=== PATIENT | female | born 1950 | race Caucasian/White ===

== ENCOUNTER → 2016-07-31 | Outpatient (CLI) | payer OTHER | LOC: US 13:36 | DX: R59.1 Generalized enlarged lymph nodes (principal); R93.8 Abnormal findings on diagnostic imaging of other specified body structures | CPT/HCPCS: 76881 ==

== ENCOUNTER → 2017-01-19 | Outpatient (CLI) | payer MEDICARE | LOC: KOH-I 13:15 | DX: M25.552 Pain in left hip (principal); M16.0 Bilateral primary osteoarthritis of hip; R93.7 Abnormal findings on diagnostic imaging of other parts of musculoskeletal system | CPT/HCPCS: 73721 ==

== ENCOUNTER → 2020-07-02 | Outpatient (CLI) | payer MEDICARE ==
[~2020-07-02] VITALS: Ht 175.3 cm; Wt 83.0 kg
[~2020-07-02] MED LIST: ASPIR 8181 MG PO; ASPIRIN325 MG PO; CALCIUM PO; CINNAMON500 MG PO; COQ10 PO; ELIQUIS2.5 MG PO; IBU600 MG PO; IBUPROFEN600 MG PO; L-LYSINE500 MG PO; LEXAPRO TAB 1010 MG PO; LIPITOR10 MG PO; MACUVITE WITH1 EACH PO; MAG PO; METAMUCIL FIBE3.4 GM PO; NEURONTIN300 MG PO; NIACIN1000 MG PO; NORCO 10-325 T1 EACH PO; OMEGA 3 FISH O1 EACH PO; OMEPRAZOLE40 MG PO; PROAIR INH; PROLIA INJ60 MG/1 ML INJ; RANITIDINE HCL150 MG PO; SINGULAIR10 MG PO; TURMERIC PO; TYLENOL EXTRA500 MG PO; VITAMIN D2000 UNI1 PO; VOLTAREN EC 7575 MG PO; ZANAFLEX4 M1 PO; ZOFRAN 4 MG TAB4 MG PO
== END ==
LOC: OPSV 10:00
DX: S22.000A Wedge compression fracture of unspecified thoracic vertebra, initial encounter for closed fracture (principal); S32.000A Wedge compression fracture of unspecified lumbar vertebra, initial encounter for closed fracture; M81.0 Age-related osteoporosis without current pathological fracture
CPT/HCPCS: 96372

== ENCOUNTER → 2021-01-04 | Outpatient (CLI) | payer MEDICARE ==
[~2021-01-04] VITALS: Ht 175.3 cm; Wt 83.9 kg
== END ==
LOC: OPSV 08:23
DX: M80.08XA Age-related osteoporosis with current pathological fracture, vertebra(e), initial encounter for fracture (principal)
CPT/HCPCS: 96372

== ENCOUNTER → 2021-03-10 | Outpatient (CLI) | payer MEDICARE | LOC: RAD 14:34 | DX: S99.922S Unspecified injury of left foot, sequela (principal) | CPT/HCPCS: 73630 ==

== ENCOUNTER → 2021-03-18 | Outpatient (CLI) | payer MEDICARE | LOC: KOH-I 10:17 | DX: S92.355A Nondisplaced fracture of fifth metatarsal bone, left foot, initial encounter for closed fracture (principal); M79.89 Other specified soft tissue disorders | CPT/HCPCS: 73718 ==

== ENCOUNTER → 2021-05-30 | Outpatient (CLI) | payer MEDICARE | LOC: KOH-I 15:06 | DX: S92.312A Displaced fracture of first metatarsal bone, left foot, initial encounter for closed fracture (principal) | CPT/HCPCS: 73630 ==

== ENCOUNTER → 2021-06-28 | Outpatient (CLI) | payer MEDICARE | LOC: KOH-I 12:10 | DX: M54.6 Pain in thoracic spine (principal); M48.07 Spinal stenosis, lumbosacral region | CPT/HCPCS: 72070; 72100 ==

== ENCOUNTER → 2021-06-30 | Outpatient (CLI) | payer MEDICARE | LOC: KOH-I 08:52 | DX: S92.352A Displaced fracture of fifth metatarsal bone, left foot, initial encounter for closed fracture (principal) | CPT/HCPCS: 73630 ==

== ENCOUNTER → 2021-07-27 | Outpatient (CLI) | payer MEDICARE ==
[~2021-07-27] VITALS: Ht 175.3 cm; Wt 82.6 kg
== END ==
LOC: OPSV 15:00
DX: M80.08XA Age-related osteoporosis with current pathological fracture, vertebra(e), initial encounter for fracture (principal)
CPT/HCPCS: 96372

== ENCOUNTER → 2021-07-28 | Outpatient (CLI) | payer MEDICARE | LOC: KOH-I 09:14 | DX: S92.352A Displaced fracture of fifth metatarsal bone, left foot, initial encounter for closed fracture (principal) | CPT/HCPCS: 73630 ==

== ENCOUNTER → 2021-08-29 | Outpatient (CLI) | payer MEDICARE | LOC: KOH-I 08:57 | DX: S92.352A Displaced fracture of fifth metatarsal bone, left foot, initial encounter for closed fracture (principal); R93.6 Abnormal findings on diagnostic imaging of limbs; X58.XXXA Exposure to other specified factors, initial encounter | CPT/HCPCS: 73630 ==

== ENCOUNTER → 2021-09-29 | Outpatient (CLI) | payer MEDICARE | LOC: KOH-I 09:11 | DX: S92.352G Displaced fracture of fifth metatarsal bone, left foot, subsequent encounter for fracture with delayed healing (principal) | CPT/HCPCS: 73630 ==

== ENCOUNTER → 2021-11-17 | Outpatient (CLI) | payer MEDICARE | LOC: KOH-I 09:05 | DX: S92.352K Displaced fracture of fifth metatarsal bone, left foot, subsequent encounter for fracture with nonunion (principal) | CPT/HCPCS: 73630 ==

== ENCOUNTER → 2022-01-17 | Outpatient (CLI) | payer MEDICARE | LOC: KOH-I 08:25 | DX: S62.31 Displaced fracture of base of other metacarpal bone (principal) | CPT/HCPCS: 73630 ==

== ENCOUNTER → 2022-02-03 | Outpatient (CLI) | payer MEDICARE ==
[~2022-02-03] VITALS: Ht 175.3 cm; Wt 83.0 kg
== END ==
LOC: OPSV 01-30 13:00
DX: M80.08XA Age-related osteoporosis with current pathological fracture, vertebra(e), initial encounter for fracture (principal)
CPT/HCPCS: 96372